=== PATIENT | male | born 1945 | race Caucasian/White ===

== ENCOUNTER 2018-09-29 16:32 | Emergency (ER) | payer MEDICARE ==
[2018-09-29 17:38] VITALS: RESP 18
--- NOTE | 2018-09-29 19:02 | ED ---
Fall HPI - General Chief Complaint: Fall Stated Complaint: fall 3' from ladder, head injury Time Seen by Provider: 09/29/18 18:42 Source: patient Mode of arrival: ambulatory - History of Present Illness Initial Comments: Patient is a 73-year-old male presenting to the emergency department with his complaining of headache status post fall x 4 hours ago. Patient states he was going upstairs from a trailer and tripped and fell backwards onto his back, right buttocks, and has head. Patient states he believes he lost consciousness for a short period of time as he remembers a bunch of people around him but does not remember them coming. Patient denies nausea, vomiting, changes in vision. Patient states his head hurts where he had hit and has been feeling a little bit better since the fall. Patient denies being on a blood thinner other than ASA. No other injuries at this time. Patient's is very adamant about getting a computed tomography scan. - Related Data Home Medications Medication Instructions Recorded Confirmed Atorvastatin Calcium [Lipitor] 40 mg PO HS 10/02/13 09/29/18 Enalapril [Vasotec] 5 mg PO QAM 10/02/13 09/29/18 Niacin [Niacin ER] 1,000 mg PO BID 10/02/13 09/29/18 Pentoxifylline [TRENtal] 400 mg PO AC-BID 10/02/13 09/29/18 Aspirin EC [Ecotrin] 325 mg PO DAILY 09/29/18 09/29/18 Cinnamon Bark [Cinnamon] 1,000 mg PO BID 09/29/18 09/29/18 Glucosamine/Chondr Rojas A Sod [Osteo 1 tab PO DAILY 09/29/18 09/29/18 Bi-Flex Caplet] Metoprolol Tartrate [Lopressor] 25 mg PO BID 09/29/18 09/29/18 [place]-3 Fatty Acids/Fish Oil [Fish 2 cap PO QAM 09/29/18 09/29/18 Oil 1,000 mg Softgel] Ubidecarenone [Co Q-10] 200 mg PO QAM 09/29/18 09/29/18 amLODIPine [Norvasc] 5 mg PO HS 09/29/18 09/29/18 metFORMIN HCL [Glucophage] 500 mg PO BID 09/29/18 09/29/18 Allergies Allergy/AdvReac Type Severity Reaction Status Date / Time No Known Allergies Allergy Verified 09/29/18 20:13 Review of Systems ROS Statement: Those systems with pertinent positive or pertinent negative responses have been documented in the HPI. ROS Other: All systems not noted in ROS Statement are negative. Past Medical History Past Medical History: Cancer, Hyperlipidemia, Hypertension, Myocardial Infarction ([place]) Additional Past Medical History / Comment(s): BLADDER CA. ONLY ONE FUNCTIONING KIDNEY (PT DOES NOT KNOW WHICH). PVD. Last Myocardial Infarction Date:: 1980 History of Any Multi-Drug Resistant Organisms: None Reported Past Surgical History: Bladder Surgery, Coronary Bypass/CABG, Heart Catheterization Past Anesthesia/Blood Transfusion Reactions: No Reported Reaction Past Psychological History: No Psychological Hx Reported Smoking Status: Former smoker Past Alcohol Use History: Occasional Past Drug Use History: None Reported General Exam - General Exam Comments Initial Comments: GENERAL: Well-appearing, well-nourished and in no acute distress. HEAD: Atraumatic, normocephalic. Small abrasion to the right posterior aspect of the skull. No active bleeding. EYES: Pupils equal round and reactive to light, extraocular movements intact, sclera anicteric, conjunctiva are normal. ENT: TMs normal, nares patent, oropharynx clear without exudates. Moist mucous membranes. NECK: Normal range of motion, supple without lymphadenopathy or JVD. LUNGS: Breath sounds clear to auscultation bilaterally and equal. No wheezes rales or rhonchi. HEART: Regular rate and rhythm without murmurs, rubs or gallops. ABDOMEN: Soft, nontender, normoactive bowel sounds. No guarding, no rebound. No masses appreciated. : Deferred EXTREMITIES: Normal range of motion, no pitting or edema. No clubbing or cyanosis. NEUROLOGICAL: Cranial nerves II through XII grossly intact. Normal speech, normal gait. PSYCH: Normal mood, normal affect. SKIN: Warm, Dry, normal turgor, no rashes or lesions noted. Course Vital Signs 09/29/18 09/29/18 17:33 20:41 Temperature 98.3 F 97.4 F L Pulse Rate 69 78 Respiratory 18 18 Rate Blood Pressure 177/75 188/84 O2 Sat by Pulse 99 99 Oximetry Medical Decision Making - Medical Decision Making Patient is a 73-year-old male presents to the ER after falling off 2 steps. Patient states he was going up to trailer steps when he slipped and fell backwards onto his back, right hip, and hitting his head. Patient admits to possible loss of consciousness for a few seconds as he will remembers a bunch of people around him but did not see them coming. Patient denies nausea, vomiting. On exam patient had small abrasion on the posterior aspect right side of the skull. No active bleeding. No other injuries noted. Computed tomography scan was negative for active bleeding. Upon arrival patient had elevated blood pressure 180. Patient states his blood pressure is usually in the 120s to 130s. Patient states he takes blood pressure medication in the evening. Patient wanted to take blood pressure medication at home and will monitor his BP. Return parameters were discussed with patient. Patient will be discharged home. Case discussed with Dr. Easley. Disposition Clinical Impression: Fall, Concussion Disposition: HOME SELF-CARE Condition: Stable Instructions (If sedation given, give patient instructions): Concussion (ED) Additional Instructions: Please return to the Emergency Department if symptoms worsen or any other concerns. Is patient prescribed a controlled substance at d/c from ED?: No Referrals: Jermaine Epps MD [Primary Care Provider] - 1-2 days
[2018-09-29 20:42] VITALS: BP 188/84; PULSE 78; TEMP 97.4
--- NOTE | 2018-09-29 21:36 | CT ---
EXAMINATION: CT brain wo con DATE AND TIME: 09/29/2018 8:21 PM CLINICAL INDICATION: PHH; pain TECHNIQUE: Standard departmental protocol.; 1113.4; COMPARISON: None. FINDINGS: The calvarium is intact. There is no intracranial hemorrhage. There is no intracranial mass or mass effect. No definite new intra-axial or extra-axial attenuation defect. The paranasal sinuses, middle ear cavities, and mastoid sinus air cells are clear. The orbits are unremarkable. IMPRESSION: NO ACUTE PROCESS.
== END 2018-09-29 21:58 | disposition home or self-care (01) ==
LOC: EC 16:32
DX: S06.0X0A Concussion without loss of consciousness, initial encounter (principal); E78.5 Hyperlipidemia, unspecified; I10 Essential (primary) hypertension; I25.2 Old myocardial infarction; Z79.82 Long term (current) use of aspirin; Z79.84 Long term (current) use of oral hypoglycemic drugs; Z79.899 Other long term (current) drug therapy; Z85.51 Personal history of malignant neoplasm of bladder; Z87.891 Personal history of nicotine dependence; Z95.1 Presence of aortocoronary bypass graft; W10.8XXA Fall (on) (from) other stairs and steps, initial encounter; W22.8XXA Striking against or struck by other objects, initial encounter
CPT/HCPCS: 70450; 99283

== ENCOUNTER 2022-11-23 15:00 | Emergency (ER) | payer MEDICARE ==
[2022-11-23] MEDS ORDERED: DIPH,PERTUS(ACELL)TETVAC-LF 0.5 ML VIAL IM ONE (15:12)
[2022-11-23] MEDS ORDERED: SODIUM CHLORIDE 0.9% 500 ML 500 ML IV STA (15:12)
[2022-11-23 15:14] LABS: Glucose,Whole Blood 297 mg/dL (70-110)
[2022-11-23 15:26] VITALS: BP 164/64; PULSE 72; RESP 18; TEMP 98
--- NOTE | 2022-11-23 15:30 | XR ---
EXAMINATION TYPE: XR chest 1V portable DATE OF EXAM: 11/23/2022 3:27 PM COMPARISON: None TECHNIQUE: XR chest 1V portable Portable AP radiograph of the chest. CLINICAL INDICATION:Male, 77 years old with history of trauma; FINDINGS: Patient is rotated which limits evaluation. Lungs/Pleura: There is no evidence of pleural effusion, focal consolidation, or pneumothorax. Elevat ion of the left hemidiaphragm. Pulmonary vascularity: Unremarkable. Heart/mediastinum: Cardiomediastinal silhouette is unremarkable. Post-CABG changes. Atherosclerotic calcifications are seen in the aorta. Musculoskeletal: No acute osseous pathology. Midline sternotomy wires are noted. IMPRESSION: No acute cardiopulmonary disease/process.
--- NOTE | 2022-11-23 15:31 | XR ---
EXAMINATION TYPE: XR pelvis AP view DATE OF EXAM: 11/23/2022 3:27 PM INDICATION: Patient age:Male; 77 years old; Reason for study: Trauma; PHH. COMPARISON: None TECHNIQUE: The pelvis was examined in a single projection. FINDINGS: There is no evidence of fracture or dislocation. There is no soft tissue abnormality. Few pelvic phleboliths. Multilevel degenerative changes of the lower spine. Surgical clips in the left me dial thigh. Vascular calcifications. IMPRESSION: No acute osseous pathology.
[2022-11-23 15:37] LABS: INR 1.3 (<1.2); Prothrombin Time 12.9 sec (9.0-12.0)
[2022-11-23 15:40] LABS: ALT 71 U/L (4-49); AST 81 U/L (17-59); African American GFR (CKD) 50 (>60 ml/min/1.73 sqM); Albumin 3.4 g/dL (3.5-5.0); Alcohol <10 mg/dL; Alkaline Phosphatase 63 U/L (38-126); Anion Gap 9 mmol/L; Blood Urea Nitrogen 37 mg/dL (9-20); Calcium 9.6 mg/dL (8.4-10.2); Carbon Dioxide 24 mmol/L (22-30); Chloride 104 mmol/L (98-107); Glucose 279 mg/dL (74-99); Non-African American GFR(CKD) 44 (>60 ml/min/1.73 sqM); Potassium 4.3 mmol/L (3.5-5.1); Sodium 137 mmol/L (137-145); Total Bilirubin 0.6 mg/dL (0.2-1.3); Total Protein 5.8 g/dL (6.3-8.2)
[2022-11-23 15:41] LABS: Partial Thromboplastin Time 20.2 sec (22.0-30.0)
[2022-11-23 15:42] LABS: Basophils % (A) 1 %; Eosinophils # (A) 0.5 k/uL (0-0.7); Eosinophils % (A) 6 %; HGB 14.2 gm/dL (13.0-17.5); Lymphocytes # (A) 2.2 k/uL (1.0-4.8); Lymphocytes % (A) 27 %; Mean Platelet Volume 10.7; Monocytes # (A) 0.6 k/uL (0-1.0); Monocytes % (A) 8 %; Neutrophils # (A) 4.5 k/uL (1.3-7.7); Neutrophils % (A) 55 %; RBC 4.44 m/uL (4.30-5.90); WBC 8.2 k/uL (3.8-10.6)
--- NOTE | 2022-11-23 15:48 | ED ---
General Adult HPI - General Chief complaint: Fall Stated complaint: Fall Time Seen by Provider: 11/23/22 15:06 Source: patient, family, EMS, RN notes reviewed, old records reviewed Mode of arrival: EMS Limitations: no limitations - History of Present Illness Initial comments: Patient is a 77-year-old male with past medical history remarkable for kidney disease, bladder cancer, hypertension, [place] who presents to the emergency department after falling from a ladder onto concrete from approximately 12-14 feet in the air. Patient states he was attempted to place an additional board on the side of a barn when the ladder collapsed. States he rode the ladder down part away but then felt the rest the leg primarily onto his left side. States using the toilet the scene afterwards. States he may have hit his head on the back, but Denies loss of consciousness. Denies being on blood thinners. Denies any chest pain or abdominal pain. Denies any nausea vomiting. Denies shortness of breath. Endorses some left knee pain, left elbow pain, left hand pain. Has some abrasions as well as skin tears on his left hand as well as his right forearm. Presents for further evaluation at this time. Denies any back pain. Unknown when his last tetanus shot was. - Related Data Home Medications Medication Instructions Recorded Confirmed Atorvastatin Calcium [Lipitor] 40 mg PO DAILY 10/02/13 08/23/22 Niacin [Niacin ER] 500 mg PO QID 10/02/13 08/23/22 Pentoxifylline [TRENtal] 400 mg PO BID 10/02/13 08/23/22 Glucosamine/Chondr Rojas A Sod [Osteo 1 tab PO DAILY 09/29/18 08/23/22 Bi-Flex Caplet] Metoprolol Tartrate [Lopressor] 25 mg PO BID 09/29/18 08/23/22 [place]-3 Fatty Acids/Fish Oil [Fish 2 cap PO DAILY 09/29/18 08/23/22 Oil 1,000 mg Softgel] Ubidecarenone [Co Q-10] 200 mg PO DAILY 09/29/18 08/23/22 amLODIPine [Norvasc] 5 mg PO DAILY 09/29/18 08/23/22 metFORMIN HCL [Glucophage] 500 mg PO BID 09/29/18 08/23/22 Aspirin EC [Ecotrin Low Dose] 81 mg PO BID 08/23/22 08/23/22 Cholecalciferol [Vitamin D3 (25 50 mcg PO DAILY 08/23/22 08/23/22 Mcg = 1000 Iu)] Cholestoff 800mg 1 cap PO DAILY 08/23/22 08/23/22 Enalapril [Vasotec] 10 mg PO BID 08/23/22 08/23/22 Multivitamins, Thera [Multivitamin 1 tab PO DAILY 08/23/22 08/23/22 (formulary)] Previous Rx's Medication Instructions Recorded Meclizine [Antivert] 25 mg PO TID #15 tab 08/23/22 Ondansetron Odt [Zofran ODT] 4 mg PO Q8HR PRN #10 tab 08/23/22 Allergies Allergy/AdvReac Type Severity Reaction Status Date / Time No Known Allergies Allergy Verified 11/23/22 15:26 Review of Systems ROS Statement: Those systems with pertinent positive or pertinent negative responses have been documented in the HPI. Review of Systems: CONST: Denies fever EYES: Denies blurry vision ENT: Denies nasal congestion C/V: Denies Chest pain RESP: Denies shortness of breath GI: Denies abdominal pain : Denies dysuria SKIN: Endorses skin tears, lacerations MSK: Endorses joint pain NEURO: Denies headache ROS Other: All systems not noted in ROS Statement are negative. Past Medical History Past Medical History: Cancer, Hyperlipidemia, Hypertension, Myocardial Infarction ([place]) Additional Past Medical History / Comment(s): BLADDER CA. ONLY ONE FUNCTIONING KIDNEY (PT DOES NOT KNOW WHICH). PVD. Last Myocardial Infarction Date:: 1980 History of Any Multi-Drug Resistant Organisms: None Reported Past Surgical History: Bladder Surgery, Coronary Bypass/CABG, Heart Catheterization Past Anesthesia/Blood Transfusion Reactions: No Reported Reaction Past Psychological History: No Psychological Hx Reported Smoking Status: Former smoker Past Alcohol Use History: Occasional Past Drug Use History: None Reported General Exam - General Exam Comments Initial Comments: General: Appears in no acute distress. HEAD: Normal with no signs of head trauma. Negative najera sign. Negative raccoon eyes. EYES: PERRLA, EOMI, conjunctiva normal, no discharge. Pupils are 3 mm and equal bilaterally. ENT: Hearing grossly intact, normal oropharynx. RESPIRATORY: Clear breath sounds bilaterally. No wheezes, rales, or rhonchi. C/V: Regular rate and rhythm. S1 and S2 auscultated, no significant edema, peripheral pulses 2+ and intact throughout ABD: Abd is soft, nontender, nondistended EXT: Normal range of motion, no obvious deformity. Pelvis is stable. No midline cervical, thoracic, lumbar spine tenderness to palpation. Patient does have some left wrist and hand tenderness to palpation as well as left forearm and elbow and left knee tenderness palpation. However normal range of motion. No obvious deformities. SKIN: Skin tear located over the right forearm on the posterior aspect as well as the left fourth and fifth digits which are currently bandaged. NEURO: Alert and oriented x 4. Cranial nerves II-XII intact. No focal sensory or strength deficits. GCS of 15. NIH is 0. Limitations: no limitations Course Vital Signs 11/23/22 15:10 Temperature 98.0 F Pulse Rate 72 Respiratory 18 Rate Blood Pressure 164/64 O2 Sat by Pulse 99 Oximetry Medical Decision Making - Medical Decision Making Was pt. sent in by a medical professional or institution (, PA, GRAIN GRADER, urgent care, hospital, or prison...) When possible be specific @ -No Did you speak to anyone other than the patient for history (EMS, parent, family, police, friend...)? What history was obtained from this source @ -Patient's is at bedside and provides additional history that she did witness the fall and was able to tell me that the patient did somewhat ride the ladder down but also free fell a decent way as well. Patient was ambulatory afterwards. Did you review nursing and triage notes (agree or disagree)? Why? @ -I reviewed and agree with nursing and triage notes Were old charts reviewed (outside hosp., previous admission, EMS record, old EKG, old radiological studies, urgent care reports/EKG's, prison records)? Report findings @ -Previous charts from August 2022 were reviewed. Differential Diagnosis (chest pain, altered mental status, abdominal pain women, abdominal pain men, vaginal bleeding, weakness, fever, dyspnea, syncope, headache, dizziness, GI bleed, back pain, seizure, CVA, palpatations, mental health, musculoskeletal)? @ -Differential Musculoskeletal Muscular strain, contusion, ligament sprain, fracture, arthritis, septic arthritis, bursitis, cellulitis, muscle spasm, nerve compression, DVT, arterial occlusion, herpes zoster, electrolyte abnormality, tumor.... This is not meant to be in all inclusive list. Also includes intracranial bleed or injury. Includes bony traumatic injury. Includes intra-abdominal or intrathoracic injury. EKG interpreted by me (3pts min.). @ -As above X-rays interpreted by me (1pt min.). @ -Chest x-ray shows no obvious acute cardiopulmonary process. Pelvis x-ray r eveals no obvious acute traumatic injury.Patient's left forearm, hand, wrist, elbow, knee x-rays reveal no obvious acute traumatic injuries. Some soft tissue swelling seen in the left elbow. Arthritis seen. CT interpreted by me (1pt min.). @ -Patient's CT brain, cervical spine, chest abdomen pelvis, T and L-spine show no obvious traumatic injuries. Incidental findings otherwise. U/S interpreted by me (1pt. min.). @ -None done What testing was considered but not performed or refused? (CT, X-rays, U/S, labs)? Why? @ -None What meds were considered but not given or refused? Why? @ -I offered analgesic medications which were declined by the patient.Patient refuses cervical collar at this time. Did you discuss the management of the patient with other professionals (professionals i.e. , PA, GRAIN GRADER, lab, RT, psych nurse, social media assistant, delivery driver/customer service, teacher, corporate ethics officer, case sealer)? Give summary @ -Dr. Lowe was made aware of the trauma activation. She returned her phone call and will be notified of any significant updates. Was smoking cessation discussed for >3mins.? @ -No Was critical care preformed (if so, how long)? @ -Yes, 37 minutes Were there social determinants of health that impacted care today? How? (Homelessness, low income, unemployed, alcoholism, drug addiction, transportation, low edu. Level, literacy, decrease access to med. care, [facility], rehab)? @ -No Was there de-escalation of care discussed even if they declined (Discuss DNR or withdrawal of care, Hospice)? DNR status @ -No What co-morbidities impacted this encounter? (DM, HTN, Smoking, COPD, CAD, Cancer, CVA, ARF, Chemo, Hep., AIDS, mental health diagnosis, sleep apnea, morbid obesity)? @ -None Was patient admitted / discharged? Hospital course, mention meds given and route, prescriptions, significant lab abnormalities, going to OR and other pertinent info. @ -Patient presents as a level II trauma activation. Page or when out. Dr. Lowe the trauma surgeon on-call returned our phone call and will be notified of any significant updates. ATLS protocol will be followed. Vital signs are within acceptable limits. Patient's injury is based on his presentation and physical exam appeared to be limited to skin tears and abrasions as well as some extremity tenderness on palpation. No obviate this other significant injury at this time. However due to the mechanism of injury as well as the patient's age, we'll obtain CT imaging of the brain, spine, chest abdomen pelvis. He was in agreement this plan. We'll also obtain plain films of the left arm, left hip, left knee, as well as trauma labs. Patient was in agreement with this plan. He declines analgesic medications at this time. Tetanus will be updated. He'll be given IV fluids.Patient refuses cervical collar at this time. EKG showed no signs of acute ischemia.Patient's CT imaging negative for any o bvious acute reticulocyte injury. Patient's x-rays also negative for any traumatic injury other than some soft tissue swelling over the posterior aspect of the left elbow. Patient's laboratory studies are remarkable for elevated BUN/creatinine in the setting of CK D. He did receive 500 mL fluid bolus. Patient is also hyperglycemic in the setting of diabetes. No other acute findings on imaging or labs. On reevaluation, we discussed his workup. We will clean his skin tears. He already received a tetanus booster. Can use Motrin and Tylenol at home as needed for the elbow pain and swelling. Recommended icing. Discussed proper wound care. I believe it is safe for him to be discharged home. He was in agreement with this plan. I instructed the patient to follow up with their PCP in the next 1-3 days. I explained that the patient should return to the emergency department if they experience any worsening symptoms. Strict return precautions were discussed with the patient. The patient expressed understanding of these instructions. I answered all questions that the patient had. The patient was discharged home in good condition with their prescriptions and follow up information. Undiagnosed new problem with uncertain prognosis? @ -No Drug Therapy requiring intensive monitoring for toxicity (Heparin, Nitro, Insulin, Cardizem)? @ -No Were any procedures done? @ -No Diagnosis/symptom? @ -Fall, skin abrasions, contusion Acute, or Chronic, or Acute on Chronic? @ -Acute Uncomplicated (without systemic symptoms) or Complicated (systemic symptoms)? @ -Complicated Side effects of treatment? @ -none Exacerbation, Progression, or Severe Exacerbation] @ -no Poses a threat to life or bodily function? @ -no - Lab Data Result diagrams: 11/23/22 15:13 11/23/22 15:13 Lab Results 11/23/22 11/23/22 11/23/22 Range/Units 15:13 15:13 15:13 WBC 8.2 (3.8-10.6) k/uL RBC 4.44 (4.30-5.90) m/uL Hgb 14.2 (13.0-17.5) gm/dL Hct 43.0 (39.0-53.0) % MCV 97.0 (80.0-100.0) fL MCH 32.0 (25.0-35.0) pg MCHC 33.0 (31.0-37.0) g/dL RDW 14.0 (11.5-15.5) % Plt Count 98 L (150-450) k/uL MPV 10.7 Neutrophils % 55 % Lymphocytes % 27 % Monocytes % 8 % Eosinophils % 6 % Basophils % 1 % Neutrophils # 4.5 (1.3-7.7) k/uL Lymphocytes # 2.2 (1.0-4.8) k/uL Monocytes # 0.6 (0-1.0) k/uL Eosinophils # 0.5 (0-0.7) k/uL Basophils # 0.0 (0-0.2) k/uL Manual Slide Review Performed PT 12.9 H (9.0-12.0) sec INR 1.3 H (<1.2) APTT 20.2 L (22.0-30.0) sec Sodium 137 (137-145) mmol/L Potassium 4.3 (3.5-5.1) mmol/L Chloride 104 (98-107) mmol/L Carbon Dioxide 24 (22-30) mmol/L Anion Gap 9 mmol/L BUN 37 H (9-20) mg/dL Creatinine 1.51 H (0.66-1.25) mg/dL Est GFR (CKD-EPI)AfAm 50 (>60 ml/min/1.73 sqM) Est GFR (CKD-EPI)NonAf 44 (>60 ml/min/1.73 sqM) Glucose 279 H (74-99) mg/dL POC Glucose (mg/dL) (70-110) mg/dL POC Glu Geodetic Surveyor Technologist ID Calcium 9.6 (8.4-10.2) mg/dL Total Bilirubin 0.6 (0.2-1.3) mg/dL AST 81 H (17-59) U/L ALT 71 H (4-49) U/L Alkaline Phosphatase 63 (38-126) U/L Total Protein 5.8 L (6.3-8.2) g/dL Albumin 3.4 L (3.5-5.0) g/dL Serum Alcohol <10 mg/dL Blood Type Blood Type Recheck Bld Type Recheck Status Antibody Screen Spec Expiration Date 11/23/22 11/23/22 Range/Units 15:13 15:13 WBC (3.8-10.6) k/uL RBC (4.30-5.90) m/uL Hgb (13.0-17.5) gm/dL Hct (39.0-53.0) % MCV (80.0-100.0) fL MCH (25.0-35.0) pg MCHC (31.0-37.0) g/dL RDW (11.5-15.5) % Plt Count (150-450) k/uL MPV Neutrophils % % Lymphocytes % % Monocytes % % Eosinophils % % Basophils % % Neutrophils # (1.3-7.7) k/uL Lymphocytes # (1.0-4.8) k/uL Monocytes # (0-1.0) k/uL Eosinophils # (0-0.7) k/uL Basophils # (0-0.2) k/uL Manual Slide Review PT (9.0-12.0) sec INR (<1.2) APTT (22.0-30.0) sec Sodium (137-145) mmol/L Potassium (3.5-5.1) mmol/L Chloride (98-107) mmol/L Carbon Dioxide (22-30) mmol/L Anion Gap mmol/L BUN (9-20) mg/dL Creatinine (0.66-1.25) mg/dL Est GFR (CKD-EPI)AfAm (>60 ml/min/1.73 sqM) Est GFR (CKD-EPI)NonAf (>60 ml/min/1.73 sqM) Glucose (74-99) mg/dL POC Glucose (mg/dL) 297 H (70-110) mg/dL POC Glu Geodetic Surveyor Technologist ID William Denise Calcium (8.4-10.2) mg/dL Total Bilirubin (0.2-1.3) mg/dL AST (17-59) U/L ALT (4-49) U/L Alkaline Phosphatase (38-126) U/L Total Protein (6.3-8.2) g/dL Albumin (3.5-5.0) g/dL Serum Alcohol mg/dL Blood Type A Positive Blood Type Recheck A Pos Bld Type Recheck Status No Antibody Screen NEGATIVE Spec Expiration Date 11/26/20222312 - EKG Data -: EKG Interpreted by Me EKG Comments: 12-lead Electrocardiogram Interpretation Note EKG was reviewed and interpreted by myself. 12-lead ECG performed at 1507 is interpreted by me as revealing. Right Bundle-branch block, normal sinus rhythm at a rate of 76 beats per minute. [place] is normal. LA interval is 164 ms, QRS duration is 130 ms, QTc is 415ms. There were no ST or T wave abnormalities to suggest myocardial ischemia or injury. R wave progression across the precordium was satisfactory. By my interpretation this EKG is non-diagnostic for acute ischemia. When compared with EKG from August 2022 with no significant change. Critical Care Time Critical Care Time: Yes Total Critical Care Time: 37 Disposition Clinical Impression: Fall, Skin tear, Contusion Disposition: HOME SELF-CARE Condition: Good Instructions (If sedation given, give patient instructions): Fall Prevention for Older Adults (ED) Is patient prescribed a controlled substance at d/c from ED?: No Referrals: Jermaine Epps MD [Primary Care Provider] - 1-2 days Time of Disposition: 17:21
[2022-11-23 15:51] LABS: Platelet Count 98 k/uL (150-450)
--- NOTE | 2022-11-23 16:08 | CT ---
EXAMINATION TYPE: CT brain cspine wo con DATE OF EXAM: 11/23/2022 COMPARISON: Brain 08/23/2022 HISTORY: 77 year-old male trauma, pain after Fall off ladder. CT DLP: 1522.3 mGycm Automated exposure control for dose reduction was used. Technique: Examination of the head was done in axial plane without intravenous contrast. Coronal and sagittal reconstructions performed. CT of the cervical spine was obtained in axial plane without intravenous injection of contrast mater ial. Coronal and sagittal reformatted images were obtained from the axial views for evaluation of f ractures, spinal alignment and canal. FINDINGS: Head: There is no evidence of acute intracranial hemorrhage, acute ischemic changes, mass, mass-effect, or extra-axial fluid collection. There is no effacement of cerebral sulci or basal subarachnoid cister ns. There is no hydrocephalus. There is no midline shift. Castorena-white matter distinction is preserv ed. There is mild cerebral cortical volume loss overlying the bilateral convexities. Discogenic calcifica tions in the carotid siphons. No calvarial fracture. Paranasal sinuses and mastoid air cells well pneumatized. Orbits and globes ar e intact. Cervical spine: There appears to be chronic foreshortening of the distal left clavicle. No craniocervical junction abnormality, predental space widening, or prevertebral soft tissue swellin g. Moderate fibrotic change mid to lower cervical spine but with preserved alignment Disc osteophyte complex and ligamentum flavum thickening may contribute to moderate narrowing of the spinal canal at C5-C6 and mild at other levels. No acute fracture seen at the cervical spine. Variable moderate neuroforaminal stenoses mid to lower cervical spine. Sagittal and coronal reformatted images confirm above findings. COMBINED IMPRESSION: 1. Mild cerebral atrophy. No acute intracranial abnormality seen. 2. No acute fracture or malalignment of the cervical spine. Moderate spondylotic change mid to lower cervical spine.
--- NOTE | 2022-11-23 16:20 | CT ---
EXAMINATION TYPE: CT ChestAbdPelvis w con, CT thor lumbar spine w con DATE OF EXAM: 11/23/2022 COMPARISON: None HISTORY: 77-year-old male trauma, pain after Fall off ladder. TECHNIQUE: Contiguous axial scanning of the chest, abdomen, and pelvis performed with IV Contrast, pa tient injected with 100ml mL of Isovue 300. Delayed images through the kidneys and bladder were obtai yuliana. Coronal/sagittal reconstructions performed. Axial, coronal, and sagittal reconstructions of the thoracolumbar spine from body CT images. CT DLP: 1963 mGycm Automated exposure control for dose reduction was used. FINDINGS: Chest: Median sternotomy wires. Heart upper limits of normal in size without pericardial effusion. No evidence for aortic dissection. Ectatic upper descending thoracic aorta 3.6 cm. 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 Large caliber to the main right and left pulmonary arteries up to 3.1 cm. Hazy atelectasis mid and lower lungs. No consolidation, pneumothorax, or pleural effusion. Chronic appearing shortening of the distal left clavicle. ABDOMEN: Breathing motion artifact and patient's arms down by his side limits evaluation. No focal liver lesio n is seen. Orbital venous system is patent. Suspect some layering gravel in the nondistended gallblad izabella. No biliary ductal dilatation. Adrenal glands, spleen, and pancreas show no gross abnormality. A few scattered small renal cortical cysts measuring up to 1.3 cm. The left kidney is severely atroph ic. No dilated small bowel, free fluid, or free air. No mesenteric or retroperitoneal lymphadenopathy. Mild stool burden. Redundant sigmoid colon. Proximal to mid sigmoid diverticulosis. Mild circumferent ial wall thickening distal sigmoid and rectum. Mild to moderate atherosclerotic calcifications infrarenal abdominal aorta. There is moderate to leeanne re stenosis at the proximal right common iliac artery and severe at the distal left common iliac nkechi ry. Pelvis: Bladder distended. Prostate gland enlargement 5.5 cm wide. No abnormal fluid collection in the pelvis or pelvic lymphadenopathy. Bones: Mild degenerative change of both hips. No acute fracture identified. THORACIC AND LUMBAR SPINE: Hypertrophic facet arthropathy mid to lower lumbar spine. Mild/moderate degenerative disc disease low er thoracic spine. No acute fracture identified. Vertebral body heights are preserved and alignment is maintained. No evident canal compromise by CT. Moderate neural foraminal stenoses mid to lower lumbar spine. IMPRESSION (CT body and thoracolumbar spine): 1. NO ACUTE TRAUMATIC SEQUELA IDENTIFIED WITHIN THE CHEST, ABDOMEN, OR PELVIS. THORACIC AND LUMBAR SP INE SHOW NO VERTEBRAL COMPRESSION COLLAPSE OR MALALIGNMENT. CHRONIC FORESHORTENING OF THE DISTAL LEFT CLAVICLE POSSIBLY FROM PRIOR INJURY OR SURGERY. 2. POSSIBLE UNDERLYING PULMONARY ARTERIAL HYPERTENSION. 3. SUSPECT CHOLELITHIASIS. MARKED ATROPHY OF THE LEFT KIDNEY. LEFT-SIDED COLONIC DIVERTICULOSIS. PROS TATOMEGALY OF 5.5 CM WIDE. 4. MILD CIRCUMFERENTIAL WALL THICKENING OF THE DISTAL SIGMOID COLON AND RECTUM. CORRELATE FOR ANY SYM PTOMS OF A NONSPECIFIC MILD INFECTIOUS OR INFLAMMATORY COLITIS.
[2022-11-23] MEDS ORDERED: BACITRACIN/POLYMYX 500-10,000 UNIT/GM OINT 14 GM TUBE TOPICAL STA (16:39)
--- NOTE | 2022-11-23 17:08 | XR ---
EXAMINATION TYPE: XR knee complete LT DATE OF EXAM: 11/23/2022 4:49 PM INDICATION: Patient age:Male; 77 years old; Reason for study: trauma; [facility]. COMPARISON: None. TECHNIQUE: The Left knee(s) was examined in 3 projections. Frontal, lateral and oblique. FINDINGS: No evidence of any acute osseous pathology, soft tissue swelling, or joint effusion is no melinda. Mild tricompartmental joint space narrowing without significant spurring. Surgical clips demonst rated within the posterior medial lower thigh soft tissues extending to the level of the knee joint. Vascular sclerosis. IMPRESSION: 1. No acute osseous pathology. 2. Mild tricompartmental osteoarthritic changes. 3. Postsurgical changes.
--- NOTE | 2022-11-23 17:15 | XR ---
EXAMINATION TYPE: XR elbow limited LT DATE OF EXAM: 11/23/2022 COMPARISON: None HISTORY: Pain from fall TECHNIQUE: 2 view left elbow FINDINGS: Radius aligns normally with the humerus. Anterior fat-pad is normal. No elevation posterior fat pad is evident. There is soft tissue prominence over the olecranon. Note is made of multiple surgical clips within the forearm. Antecubital fossa catheter is present. IMPRESSION: 1. No acute osseous abnormality left elbow. 2. Soft tissue swelling over the olecranon.
--- NOTE | 2022-11-23 17:16 | XR ---
EXAMINATION TYPE: XR wrist limited LT DATE OF EXAM: 11/23/2022 COMPARISON: None HISTORY: Trauma, pain TECHNIQUE: 2 view left wrist FINDINGS: Distal radius and ulna within the field of view appear intact. Carpal osseous structures ap pear intact. No acute fracture or dislocation is evident. If there is pain at the anatomic snuff box, nuclear medicine bone scan could be performed for additio nal evaluation. IMPRESSION: 1. No acute osseous abnormality left wrist
--- NOTE | 2022-11-23 17:17 | XR ---
EXAMINATION TYPE: XR hand limited LT DATE OF EXAM: 11/23/2022 COMPARISON: None HISTORY: Fall trauma pain TECHNIQUE: 2 view left hand FINDINGS: No acute fractures or dislocations are evident. Soft tissues are normal. Follow up exams ca n be performed 7-10 days from acute trauma for continued pain. IMPRESSION: 1. Normal 2 view left hand
--- NOTE | 2022-11-23 17:19 | XR ---
EXAMINATION TYPE: XR forearm LT DATE OF EXAM: 11/23/2022 COMPARISON: None HISTORY: Fall, pain TECHNIQUE: 2 view left forearm FINDINGS: Radius and ulna appear intact. Multiple surgical clips are within the soft tissues forearm. There is soft tissue swelling over the olecranon. No acute fracture or dislocation is evident. Follow up exams can be performed 7-10 days from acute trauma for continued pain. IMPRESSION: 1. No acute osseous abnormality left forearm
[2022-11-23 18:33] LABS: Appearance,Urine Clear (Clear); Bilirubin,Urine Negative (Negative); Blood,Urine Negative (Negative); Color,Urine Light Yellow; Glucose,Urine (UA) 4+ (Negative); Ketones,Urine Negative (Negative); Leukocyte Esterase,Urine Negative (Negative); Nitrite,Urine Negative (Negative); PH, Urine 6.5 (5.0-8.0); Protein,Urine Negative (Negative); Specific Gravity,Urine 1.022 (1.001-1.035); Urobilinogen,Urine <2.0 mg/dL (<2.0)
[2022-11-23 18:43] LABS: Amphetamine Screen,Urine Not Detected (NotDetected); Barbiturate Screen,Urine Not Detected (NotDetected); Benzodiazepines Screen,Urine Not Detected (NotDetected); Cocaine Screen,Urine Not Detected (NotDetected); Methadone Screen, Urine Not Detected (NotDetected); Opiate Screen,Urine Not Detected (NotDetected); Oxycodone Screen, Urine Not Detected (NotDetected); Phencyclidine Screen,Urine Not Detected (NotDetected); Tricyclic Antidepressant,Urine Not Detected (NotDetected); Urn Cannabinoid Scrn Not Detected (NotDetected)
== END 2022-11-23 18:25 | disposition home or self-care (01) ==
LOC: EC 15:00
DX: S51.811A Laceration without foreign body of right forearm, initial encounter (principal); E78.5 Hyperlipidemia, unspecified; I10 Essential (primary) hypertension; I25.2 Old myocardial infarction; Z87.891 Personal history of nicotine dependence; Z79.82 Long term (current) use of aspirin; Z79.899 Other long term (current) drug therapy; Z23 Encounter for immunization; W11.XXXA Fall on and from ladder, initial encounter
CPT/HCPCS: 36415; 93005; 86900; 86901; 80053; 85025; 85610; 85730; 86850; 81003; 80306; 72170; 73070; 73090; 73100; 73120; 73562; 71045; 72129; 72125; 72132; 70450; 71260; 74177; 90715; 99291; 90471; 96360; G0480; Q9967; 80320